=== PATIENT | female | born 1990 | race Caucasian/White ===

== ENCOUNTER 2016-11-03 09:08 | Outpatient (CLI) | payer BC, OTHER ==
[~2016-11-03] VITALS: Ht 152.4 cm; Wt 64.1 kg
[~2016-11-03 09:08] MED LIST: NITR-65 PO; ONDAN4ODT PO; PRM25T
[2016-11-03 09:18] VITALS: BP 108/64
[2016-11-03] MEDS ORDERED: bcp PO (09:22)
[2016-11-03 09:42] LABS: BASOPHILS % (AUTO) 0 % (0-10); EOSINOPHILS # (AUTO) 0.3 10^3/uL (0.0-0.3); EOSINOPHILS % (AUTO) 3 % (0-10); LYMPHOCYTES # (AUTO) 2.5 X 10^3 (1.0-4.0); LYMPHOCYTES % (AUTO) 25 % (12-44); MEAN CORPUSCULAR HEMOGLOBIN 31 PG (25-34); MEAN CORPUSCULAR HGB CONC 35 G/DL (32-36); MEAN CORPUSCULAR VOLUME 89 FL (80-99); MEAN PLATELET VOLUME 11.1 FL (7.4-10.4); MONOCYTES # (AUTO) 0.6 X 10^3 (0.0-1.0); MONOCYTES % (AUTO) 6 % (0-12); NEUTROPHILS # (AUTO) 6.5 X 10^3 (1.8-7.8); NEUTROPHILS % (AUTO) 66 % (42-75); PLATELET COUNT 247 10^3/uL (130-400); RED BLOOD COUNT 4.63 10^6/uL (4.35-5.85); RED CELL DISTRIBUTION WIDTH 12.3 % (10.0-14.5)
[2016-11-05] MEDS ORDERED: IBUP-1773 PO (13:52)
[2016-11-05] MEDS ORDERED: HYDR-3812 PO (13:52)
[2016-11-05] MEDS ORDERED: OXYC-202 PO (14:01)
== END 2016-11-03 09:30 | disposition home or self-care (01) ==
LOC: PREOP 09:08
PROVIDERS: ATTEND Obstetrics & Gynecology
DX: Z01.812 Encounter for preprocedural laboratory examination (principal); Z11.2 Encounter for screening for other bacterial diseases; N80.9 Endometriosis, unspecified; R10.32 Left lower quadrant pain; N83.201 Unspecified ovarian cyst, right side
CPT/HCPCS: 36415; 84703; 85025; 87081

== ENCOUNTER 2016-11-05 10:20 | Day surgery (SDC) | payer BC, OTHER ==
[~2016-11-05] VITALS: Ht 152.4 cm; Wt 64.1 kg
[~2016-11-05 10:20] MED LIST changes: +bcp PO
[2016-11-05 10:40] VITALS: BP 111/61
[2016-11-05] MEDS ORDERED: FAMOTIDINE 20MG/2ML IV (PEPCID) ONE (10:42)
[2016-11-05] MEDS ORDERED: proPOfol 200 MG/20 ML (DIPRIVAN) VIAL IV ONE (10:52)
[2016-11-05] MEDS ORDERED: LACTATED RINGERS 1,000 ML IV ONE ×3 (10:52→14:18)
[2016-11-05] MEDS ORDERED: LIDOCAINE PF 2% 10 ML (XYLOCAINE) AMP ONE (10:52)
[2016-11-05] MEDS ORDERED: SEVOFLURANE (ULTANE) 15 ML INHAL SOLN ONE ×2 (10:52→13:28)
[2016-11-05] MEDS ORDERED: DEXAMETHASONE PF 10 MG/ML (DECADRON) VIAL ONE (10:52)
[2016-11-05] MEDS ORDERED: fentaNYL INJECTION 100 MCG/2 ML AMP ONE (10:52)
[2016-11-05] MEDS ORDERED: ONDANSETRON 4 MG/2 ML (SDV) Z0FRAN ONE ×2 (10:52→13:31)
[2016-11-05] MEDS ORDERED: ROCURONIUM 50 MG/5 ML (ZEMURON) VIAL IV ONE (10:53)
[2016-11-05] MEDS ORDERED: MIDAZOLAM 2 MG/2 ML (VERSED) VIAL ONE (10:53)
[2016-11-05] MEDS: LACTATED RINGERS 1,000 ML IV PRN ×3 (10:54→14:28)
[2016-11-05] MEDS ORDERED: FAMOTIDINE 20MG/2ML IV (PEPCID) IV ONE (11:00)
[2016-11-05] MEDS ORDERED: BUPIVACAINE 0.25% 30 ML (SENSORCAINE) VIAL ONE (11:20)
[2016-11-05] MEDS ORDERED: BUPIVACAINE 0.25% 30 ML (SENSORCAINE) VIAL INJ ONE (12:35)
[2016-11-05] MEDS ORDERED: ONDANSETRON 4 MG/2 ML (SDV) Z0FRAN IV ONE (13:15)
[2016-11-05] MEDS ORDERED: fentaNYL INJECTION 100 MCG/2 ML AMP IV PRN (13:15)
[2016-11-05] MEDS ORDERED: NEOSTIGMINE (BLOXIVERZ ) 1 MG/1ML 10 ML VIAL ONE (13:20)
[2016-11-05] MEDS ORDERED: GLYCOPYRROLATE 0.2 MG/ML (ROBINUL) 2 ML VIAL ONE (13:20)
[2016-11-05] MEDS ORDERED: morphine INJ 10 MG/ML 1ML (SYR OR VIAL) ONE (13:31)
[2016-11-05] MEDS ORDERED: ONDANSETRON 4 MG/2 ML (SDV) Z0FRAN IV PRN (13:45)
[2016-11-05] MEDS ORDERED: morphine INJ 10 MG/ML 1ML (SYR OR VIAL) IV PRN (13:45)
[2016-11-05] MEDS ORDERED: fentaNYL INJECTION 250 MCG/5 ML AMP IV PRN (13:45)
[2016-11-05] MEDS ORDERED: PROMETHAZINE INJ 25 MG/ML (PHENERGAN) AMP IV PRN (13:45)
[2016-11-05] MEDS ORDERED: D5 LR IV SOLUTION 1,000 ML IV SCH (13:46)
--- NOTE | 2016-11-05 13:46 | Operative Report ---
Operative Report Date of Procedure/Surgery Nov 05, 2016 Post-Operative Diagnosis endometriosis, right ovarian cyst, tense appendix, chronic pelvic, enteropelvic adhesions Procedure Performed Name of Procedure: laparoscopy with right ovarian cystectomy, appendectomy, lysis of adhesions, fulgeration of endometriosis Description of Procedure Hydrotherapist Charla JiménezMS III Anesthesia Type: General Estimated blood loss (mL): minimal Specimen(s) collected appendix right ovarian cystectomy Indications pelvic pain not controlled with ocps of different types, right ovarian cyst, persistent Procedure With informed consent the patient was taken to the operating room where general anesthetic was found to be adequate. She was prepped and draped in the usual sterile fashion in the dorsal lithotomy position. The bladder was drained of clear yellow urine with a straight catheter. a speculum was placed in the vagina and the cervix was examined and appeared normal. It was grasped with a tenaculum and the uterus was gently sounded to approximately 7 cm. The uterus is retroverted. A Se[employer] Innovative manipulator was used to provide manipulation of the uterus. Attention was now turned to the abdomen. The umbilicus was injected with quarter percent Marcaine and a 5 mm skin incision. The varies needle was inserted and intra-abdominal placement was confirmed with the saline drop test and a drop in pressure. The abdomen was then insufflated to a maximum pressure of 15 mmHg. I then inserted a 5 mm trocar under direct visualization with the Optiview. The scope was inserted and a survey of the pelvis was done. Revealed a normal uterus that appeared retroverted. Also normal appearing tubes bilaterally. And normal-appearing left ovary. The right ovary had a 3-4 cm cyst with an area of hemorrhage on it but it appeared to be more vascular and not an area of rupture. The appendix was stuck to the right pelvic sidewall, iliopsoas muscle. And appeared very tense. It was not ruptured. There was no evidence of endometriosis on the appendix. There was evidence of endometriosis in the posterior cul-de-sac especially along the uterosacral ligaments. These were small but multiple. There was also some cystic endometriosis along the anterior uterus At this point, 2 additional trocars were inserted in the left lower quadrant lateral to the rectus muscles and avoiding the inferior epigastric vessels. These were both 5 millimeter trocars. I fulgurated the endometriosis in the posterior cul-de-sac because it was scarred and I could not elevated in order to excise. I used the Harmonic scalpel to do so. I then resected the right ovarian cyst from the right ovary. Upon opening the cyst was cystic fluid was very clear. But the interior portion of the abnormal area on the external portion of the cyst appeared vascular. I excised this entire area and sent this for pathology. There were some adhesions of the left colon to the left pelvic sidewall and these were taken down with the harmonic scalpel. At this point I then extended the lower of the left lower quadrant port sites and inserted a 1012 mm port. I then was able to dissect the appendix off the iliopsoas muscle with the harmonic scalpel and dissected up to the ileocecal junction. At this point I inserted an Endo MARZENA stapler 0.5 mm clips. And then clamped across the base of the appendix and excise this. Good hemostasis. There is no leakage of any bowel tissue. An Endo Catch was inserted and the appendix and the cyst wall removed and sent for pathology. at this point the pelvis was irrigated. There was no bleeding. I removed the gas from the abdomen. I then removed the ports from the abdomen. I then repaired the left lower quadrant fascial defect with 0 Vicryl in a figure-of- eight fashion. I then closed the skin with 4-0 Monocryl. And then placed Surgi -Seal sealing over the trocar incision sites. The cystocele and bandage was were placed. The patient was awakened and taken to the recovery room in a stable condition. Sponge lap needle and instrument counts were correct 2. Allergies and Home Medications Allergies Coded Allergies: Codeine (Unverified Allergy, Mild, 03/05/09) Home Medications 1 TAB PO DAILY (Reported) OMAYRA GARCIA DO Nov 05, 2016 13:46
[2016-11-05] MEDS ORDERED: KETOROLAC 30 MG/ML VIAL ONE (13:47)
--- NOTE | 2016-11-05 13:50 | Discharge Inst-Women's Service ---
Discharge Inst-Women's Serv Depart Medication/Instructions New, Converted or Re-Newed RX: RX on Chart Instructions restart OCPs as directed Final Diagnosis endometriosis right ovarian cyst procedure - laparoscopy with right ovarian cystectomy, appendectomy, fulgeration of endometriosis Consults/Follow Up Additional Follow Up: Yes (1-2 weeks with Abdi) Activity Activity: Activity as Tolerated Driving Instructions: No Driving for 24 Hours NO SMOKING: NO SMOKING Nothing Inside Vagina: No Douching, No [place], No Tampons Diet Discharge Diet: No Restrictions Symptoms to Report to : Bleeding Excessive, Pain Increased, Fever Over 101 Degrees F, Vaginal Bleeding Increase, Vaginal Discharge Foul For Any Problems or Questions: Contact Your Physician Skin/Wound Care Infection Signs and Symptoms: Increased Redness, Foul Odor of Wound, Increased Drainage, Skin Itchy or Has a Rash, Increased Swelling, Temperature Above 101 F Operative Area Clean and Dry: Keep Incision Clean/Dry, You May Remove Bandage Stitches/[place]/Dermabond: Dermabond (Surgi-Seal) Bathing Instructions: OMAYRA Araya DO Nov 05, 2016 13:50
[2016-11-05] MEDS ORDERED: IBUP-1773 PO (13:52)
[2016-11-05] MEDS ORDERED: HYDR-3812 PO (13:52)
[2016-11-05] MEDS ORDERED: ONDANSETRON 4 MG/2 ML (SDV) Z0FRAN IVP PRN (14:00)
[2016-11-05] MEDS ORDERED: HYDROcodone/APAP 5 MG/325 MG (LORTAB) TAB PO PRN (14:00)
[2016-11-05] MEDS ORDERED: KETOROLAC 30 MG/ML VIAL IVP ONE (14:00)
[2016-11-05] MEDS ORDERED: OXYC-202 PO (14:01)
[2016-11-05] MEDS: morphine INJ 10 MG/ML 1ML (SYR OR VIAL) IV PRN ×2 (14:07→14:12)
[2016-11-05 14:35] VITALS: BP 99/51
[2016-11-05 15:05] VITALS: BP_SYST 93; BP_SYST 99; BP_DIAS 51
[2016-11-05 15:35] VITALS: BP 98/56
[2016-11-05 16:10] VITALS: BP 98/56
[2016-11-05] MEDS ORDERED: IBUPROFEN 800 MG (MOTRIN) TAB PO SCH (18:00)
== END 2016-11-05 16:10 | disposition home or self-care (01) ==
LOC: SDC 10:20
PROVIDERS: ATTEND Obstetrics & Gynecology
DX: N80.0 Endometriosis of uterus (principal); N80.3 Endometriosis of pelvic peritoneum; N83.201 Unspecified ovarian cyst, right side; N73.6 Female pelvic peritoneal adhesions (postinfective); K38.9 Disease of appendix, unspecified
CPT/HCPCS: 94664

== ENCOUNTER 2019-01-14 19:55 | Emergency (ER) | payer MEDICAID, OTHER ==
[~2019-01-14] VITALS: Ht 152.4 cm; Wt 61.3 kg
[~2019-01-14 19:55] MED LIST changes: +ACHD5005 PO; +IBUP-1773 PO; +LAMO25TA75 PO; +NORG1TAB14 PO; +OXYC1TAB12 PO
[2019-01-14] MEDS ORDERED: PROMETHAZINE INJ 25 MG/ML (PHENERGAN) AMP ONE (20:36)
[2019-01-14] MEDS ORDERED: LACTATED RINGERS 1,000 ML IV ONE (20:36)
[2019-01-14] MEDS ORDERED: LACTATED RINGERS 1,000 ML IV STA (20:37)
[2019-01-14 20:44] LABS: BILIRUBIN,URINE NEGATIVE (NEGATIVE); CLARITY,URINE SLIGHTLY CLOUDY; COLOR,URINE YELLOW; GLUCOSE, URINE (UA) NEGATIVE (NEGATIVE); KETONES,URINE NEGATIVE (NEGATIVE); LEUKOCYTE ESTERASE ,URINE 3+ (NEGATIVE); NITRITE,URINE NEGATIVE (NEGATIVE); PH,URINE 7 (5-9); PROTEIN,URINE NEGATIVE (NEGATIVE); UROBILINOGEN,URINE 1 MG/DL (NORMAL)
[2019-01-14] MEDS ORDERED: PROMETHAZINE INJ 25 MG/ML (PHENERGAN) AMP IVP ONE (20:45)
--- NOTE | 2019-01-14 20:45 | ED GI ---
General Stated Complaint: VOMITTING, 6 WEEKS PREG Source of Information: Patient, Family Exam Limitations: No Limitations History of Present Illness Date Seen by Provider: Jan 14, 2019 Time Seen by Provider: 20:33 Initial Comments The patient presents with sister by private conveyance with chief complaint that all day today she's had nausea vomiting and some vague diffuse abdominal cramping. She has a last menstrual period of November 14. Putting her at 8 weeks and 5 days. She also had 3 days of spotting in December so she is not sure exactly when her period is. She has plans to follow-up later in the week with Dr. Patton. She is a . Her first she did not have any hypertension , hyperglycemia or preeclampsia but she did have a lot of hyperemesis and had to come to the ER for IV fluids several times. She had some Zofran at home and she took that but it did not help after 2 doses. Her nausea started about 7:30. She's had no fevers or chills. No diarrhea constipation or significant abdominal pain. She does have a history of endometriosis and is status post [address] Patton doing a surgery for this as well as taking her appendix. She thought it was recurring last week and is why she went to the clinic and they discovered she was . She does smoke about a pack per day but since she found out she down to about 1 or 2 cigarettes per day. She still smokes marijuana occasionally before the she was smoking nightly. She does not drink alcohol. She does take vitamins but they are hard on her stomach. No other significant medical history. Allergies and Home Medications Allergies Coded Allergies: Codeine (Unverified Allergy, Mild, 03/05/09) Home Medications Doxylamine/Pyridoxine HCl 1 Each Tablet.dr, 1 EACH PO Q6H PRN for NAUSEA/ VOMITING-1ST LINE Prescribed by: PUSHPA SALDANA on 01/14/192054 Pnv with Ca,No.74/Iron/FA 1 Each Tablet, 1 EACH PO DAILY Prescribed by: PUSHPA SALDANA on 01/14/192054 Promethazine HCl 25 Mg Tablet, 25 MG PO Q6H PRN for NAUSEA/VOMITING Prescribed by: PUSHPA SALDANA on 01/14/192054 Patient Home Medication List Home Medication List Reviewed: Yes Review of Systems Review of Systems Constitutional: No chills, No diaphoresis, No fever, No malaise EENTM: No Blurred Vision, No Double Vision Respiratory: Denies Cough, Denies Shortness of Air Cardiovascular: Denies Chest Pain, Denies Edema Gastrointestinal: Denies Abdomen Distended, Denies Abdominal Pain, Denies Blood Streaked Stools, Denies Constipated, Denies Diarrhea; Nausea, Poor Appetite, Poor Fluid Intake, Vomiting Genitourinary: Denies Burning, Denies Discharge Musculoskeletal: No back pain, No joint pain Skin: No pruritus, No rash Past Lryzwet-Bnjwfo-Qdqiru Hx Patient Social History Alcohol Use: Denies Use Recreational Drug Use: Yes Drug of Choice: Marijuana Smoking Status: Current Everyday Smoker Type Used: Cigarettes (2cig/day) 2nd Hand Smoke Exposure: Yes Recent Foreign Travel: No Contact w/Someone Who Travel: No Recent Hopitalizations: No Seasonal Allergies Seasonal Allergies: No Past Medical History Surgeries: Yes (ENDOMETRIAL ABLATION) Appendectomy, Section Respiratory: No Cardiac: Yes Heart Murmur Neurological: No Reproductive Disorders: Yes Female Reproductive Disorders: Endometriosis, Ovarian Cyst Gastrointestinal: Yes Irritable Bowel Musculoskeletal: No Endocrine: No Cancer: No Psychosocial: Yes Bipolar, Depression Integumentary: No Blood Disorders: No Physical Exam Vital Signs Vital Signs - First Documented 01/14/19 20:25 Temp 98.1 Pulse 82 Resp 20 B/P (MAP) 101/66 (78) Pulse Ox 98 O2 Delivery Room Air Capillary Refill : Height/Weight/BMI Height: 5'0.00" Weight: 135lbs. 4.0oz. 61.270034uc; 27.6 BMI Method:Stated General Appearance: WD/WN, no apparent distress HEENT: PERRL/EOMI, pharynx normal (Mildly dry.) Respiratory: no respiratory distress, no accessory muscle use Cardiovascular: normal peripheral pulses, regular rate, rhythm, no edema Peripheral Pulses: 2+ Radial Pulses (R), 2+ Radial Pulses (L) Gastrointestinal: non tender, soft Neurologic/Psychiatric: alert, normal mood/affect, oriented x 3 Skin: normal color, warm/dry Progress/Results/Core Measures Results/Orders Lab Results Laboratory Tests Test 01/14/19 20:26 01/14/19 20:39 Range/Units Urine Color YELLOW Urine Clarity SLIGHTLY CLOUDY Urine pH 7 5-9 Urine Specific [place] 1.010 L 1.016-1.022 Urine Protein NEGATIVE NEGATIVE Urine Glucose (UA) NEGATIVE NEGATIVE Urine Ketones NEGATIVE NEGATIVE Urine Nitrite NEGATIVE NEGATIVE Urine Bilirubin NEGATIVE NEGATIVE Urine Urobilinogen 1 NORMAL MG/DL Urine Leukocyte Esterase 3+ H NEGATIVE Urine RBC (Auto) NEGATIVE NEGATIVE Urine RBC NONE /HPF Urine WBC 0-2 /HPF Urine Squamous Epithelial Cells 5-10 /HPF Urine Crystals NONE /LPF Urine Bacteria FEW H /HPF Urine Casts NONE /LPF Urine Mucus SMALL H /LPF Urine Culture Indicated YES Urine Test POSITIVE NEGATIVE Urine Opiates Screen NEGATIVE NEGATIVE Urine Oxycodone Screen NEGATIVE NEGATIVE Urine Methadone Screen NEGATIVE NEGATIVE Urine Propoxyphene Screen NEGATIVE NEGATIVE Urine Barbiturates Screen NEGATIVE NEGATIVE Ur Tricyclic Antidepressants Screen NEGATIVE NEGATIVE Urine Phencyclidine Screen NEGATIVE NEGATIVE Urine Amphetamines Screen NEGATIVE NEGATIVE Urine Methamphetamines Screen NEGATIVE NEGATIVE Urine Benzodiazepines Screen NEGATIVE NEGATIVE Urine Cocaine Screen NEGATIVE NEGATIVE Urine Cannabinoids Screen POSITIVE H NEGATIVE White Blood Count 9.2 4.3-11.0 10^3/uL Red Blood Count 4.42 4.35-5.85 10^6/uL Hemoglobin 13.8 11.5-16.0 G/DL Hematocrit 39 35-52 % Mean Corpuscular Volume 88 80-99 FL Mean Corpuscular Hemoglobin 31 25-34 PG Mean Corpuscular Hemoglobin Concent 35 32-36 G/DL Red Cell Distribution Width 12.4 10.0-14.5 % Platelet Count 270 130-400 10^3/uL Mean Platelet Volume 10.8 H 7.4-10.4 FL Neutrophils (%) (Auto) 83 H 42-75 % Lymphocytes (%) (Auto) 12 12-44 % Monocytes (%) (Auto) 5 0-12 % Eosinophils (%) (Auto) 0 0-10 % Basophils (%) (Auto) 0 0-10 % Neutrophils # (Auto) 7.6 1.8-7.8 X 10^3 Lymphocytes # (Auto) 1.1 1.0-4.0 X 10^3 Monocytes # (Auto) 0.4 0.0-1.0 X 10^3 Eosinophils # (Auto) 0.0 0.0-0.3 10^3/uL Basophils # (Auto) 0.0 0.0-0.1 10^3/uL Sodium Level 137 135-145 MMOL/L Potassium Level 3.4 L 3.6-5.0 MMOL/L Chloride Level 108 H 98-107 MMOL/L Carbon Dioxide Level 20 L 21-32 MMOL/L Anion Gap 9 5-14 MMOL/L Blood Urea Nitrogen 5 L 7-18 MG/DL Creatinine 0.73 0.60-1.30 MG/DL Estimat Glomerular Filtration Rate > 60 BUN/Creatinine Ratio 7 Glucose Level 116 H 70-105 MG/DL Calcium Level 8.6 8.5-10.1 MG/DL Corrected Calcium 8.3 L 8.5-10.1 MG/DL Total Bilirubin 0.5 0.1-1.0 MG/DL Aspartate Amino Transf (AST/SGOT) 18 5-34 U/L Alanine Aminotransferase (ALT/SGPT) 13 0-55 U/L Alkaline Phosphatase 65 40-136 U/L Total Protein 6.1 L 6.4-8.2 GM/DL Albumin 4.4 3.2-4.5 GM/DL My Orders Orders - PUSHPA SALDANA Promethazine Injection (Phenergan Injec (01/14/19 20:36) Lactated Ringers (Lr 1000 Ml Iv Solution (01/14/19 20:36) Cbc With Automated Diff (01/14/19 20:37) Comprehensive Metabolic Panel (01/14/19 20:37) Urinalysis (01/14/19 20:37) Drug Screen Stat (Urine) (01/14/19 20:37) Hcg,Qualitative Urine (01/14/19 20:37) Promethazine Injection (Phenergan Injec (01/14/19 20:45) Lactated Ringers (Lr 1000 Ml Iv Solution (01/14/19 20:37) Urine Culture (01/14/19 20:26) Medications Given in ED Current Medications Medications Dose Ordered Sig/Blayne Route Start Time Stop Time Status Last Admin Dose Admin Promethazine HCl 25 mg ONCE ONCE IVP 01/14/19 20:45 01/14/19 20:46 DC 01/14/19 20:50 25 MG Vital Signs/I&O 01/14/19 20:25 Temp 98.1 Pulse 82 Resp 20 B/P (MAP) 101/66 (78) Pulse Ox 98 O2 Delivery Room Air Progress Progress Note #1: Time: 20:47 Progress Note We'll give her some Phenergan and a liter of fluids while we check some basic labs and urine. We'll recommend vitamin B6 and Tylenol. We've encouraged her to discontinue the use of tobacco and marijuana. We'll also provide her with a prescription for some Phenergan and low iron and vitamins. Progress Note #2: Time: 21:08 Progress Note Urine looks like contamination. We'll culture. Departure Impression Primary Impression: Nausea and vomiting in prior to 22 weeks gestation Disposition: 01 HOME, SELF-CARE Condition: Improved Departure-Patient Inst. Decision time for Depature: 21:15 Referrals: NO,LOCAL PHYSICIAN (PCP/Family) Primary Care Physician Patient Instructions: Nausea and Vomiting of (DC) Add. Discharge Instructions: Drink plenty of fluids. Avoid caffeine. Discontinue smoking. Follow-up with Dr. Patton at her scheduled appointment. If you have nausea or vomiting you first line should be to get some rest and try one tablet of the doxylamine/pyridoxine every 6 hours. If this is not helping you can also try Phenergan. If you're not having nausea take the vitamin with food one tablet daily. Scripts Pnv with Ca,No.74/Iron/FA ( Low Iron Tablet) 1 Each Tablet 1 EACH PO DAILY for 30 Days, #30 TAB 0 Refills Prov: PUSHPA SALDANA 01/14/19 Promethazine HCl (Promethazine Tablet) 25 Mg Tablet 25 MG PO Q6H PRN for NAUSEA/VOMITING, #14 TAB 0 Refills Prov: PUSHPA SALDANA 01/14/19 Doxylamine/Pyridoxine HCl (Leticia Sharif 10-10 mg Tablet) 1 Each Tablet. 1 EACH PO Q6H PRN for NAUSEA/VOMITING-1ST LINE, #60 TAB 0 Refills Prov: PUSHPA SALDANA 01/14/19 PUSHPA SALDANA Jan 14, 2019 20:45
[2019-01-14 20:48] LABS: BACTERIA,URINE FEW /HPF; HCG,QUALITATIVE URINE POSITIVE (NEGATIVE); WBC,URINE 0-2 /HPF
[2019-01-14 20:51] LABS: BASOPHILS % (AUTO) 0 % (0-10); EOSINOPHILS % (AUTO) 0 % (0-10); HEMATOCRIT 39 % (35-52); HEMOGLOBIN 13.8 G/DL (11.5-16.0); LYMPHOCYTES # (AUTO) 1.1 X 10^3 (1.0-4.0); LYMPHOCYTES % (AUTO) 12 % (12-44); MEAN CORPUSCULAR HEMOGLOBIN 31 PG (25-34); MEAN CORPUSCULAR HGB CONC 35 G/DL (32-36); MEAN CORPUSCULAR VOLUME 88 FL (80-99); MEAN PLATELET VOLUME 10.8 FL (7.4-10.4); MONOCYTES # (AUTO) 0.4 X 10^3 (0.0-1.0); MONOCYTES % (AUTO) 5 % (0-12); NEUTROPHILS # (AUTO) 7.6 X 10^3 (1.8-7.8); NEUTROPHILS % (AUTO) 83 % (42-75); PLATELET COUNT 270 10^3/uL (130-400); RED CELL DISTRIBUTION WIDTH 12.4 % (10.0-14.5); WHITE BLOOD COUNT 9.2 10^3/uL (4.3-11.0)
[2019-01-14 20:55] LABS: AMPHETAMINE SCREEN, URINE NEGATIVE (NEGATIVE); BARBITURATE SCREEN URINE NEGATIVE (NEGATIVE); BENZODIAZEPINES SCREEN URINE NEGATIVE (NEGATIVE); CANNABINOID SCREEN, URINE POSITIVE (NEGATIVE); COCAINE SCREEN URINE NEGATIVE (NEGATIVE); METHADONE STAT NEGATIVE (NEGATIVE); METHAMPHETAMINE SCREEN URINE S NEGATIVE (NEGATIVE); OPIATE SCREEN URINE NEGATIVE (NEGATIVE); OXYCODONE STAT NEGATIVE (NEGATIVE); PROPOXYPHENE STAT NEGATIVE (NEGATIVE); TRICYCLIC ANTIDEPRESSANTS SCRE NEGATIVE (NEGATIVE)
[2019-01-14] MEDS ORDERED: PNV1TABL47 PO (20:55)
[2019-01-14] MEDS ORDERED: DOXY1TAB3 PO (20:55)
[2019-01-14] MEDS ORDERED: PROM25TA14 PO (20:55)
[2019-01-14 21:01] LABS: ALANINE AMINOTRANSFERASE 13 U/L (0-55); ALBUMIN 4.4 GM/DL (3.2-4.5); ALKALINE PHOSPHATASE 65 U/L (40-136); BILIRUBIN,TOTAL 0.5 MG/DL (0.1-1.0); BUN/CREATININE RATIO 7; CALCIUM 8.6 MG/DL (8.5-10.1); CARBON DIOXIDE 20 MMOL/L (21-32); CHLORIDE 108 MMOL/L (98-107); CREATININE SERUM 0.73 MG/DL (0.60-1.30); GFR ESTIMATED > 60; GLUCOSE 116 MG/DL (70-105); POTASSIUM 3.4 MMOL/L (3.6-5.0); SODIUM 137 MMOL/L (135-145); TOTAL PROTEIN 6.1 GM/DL (6.4-8.2)
[2019-01-14 21:49] VITALS: BP 98/61
== END 2019-01-14 21:49 | disposition home or self-care (01) ==
LOC: EDUNIT# 19:55 → ER 19:57
DX: O21.9 Vomiting of pregnancy, unspecified (principal); O99.331 Smoking (tobacco) complicating pregnancy, first trimester; F17.210 Nicotine dependence, cigarettes, uncomplicated; O99.321 Drug use complicating pregnancy, first trimester; F12.10 Cannabis abuse, uncomplicated; O99.611 Diseases of the digestive system complicating pregnancy, first trimester; K58.9 Irritable bowel syndrome, unspecified; O99.341 Other mental disorders complicating pregnancy, first trimester; F31.9 Bipolar disorder, unspecified; Z88.5 Allergy status to narcotic agent; Z3A.08 8 weeks gestation of pregnancy
CPT/HCPCS: 36415; 80053; 80306; 81000; 84703; 85025; 87088

== ENCOUNTER 2019-03-14 07:58 | Emergency (ER) | payer MEDICAID ==
[~2019-03-14] VITALS: Ht 152.4 cm; Wt 66.2 kg
[~2019-03-14 07:58] MED LIST changes: +DOXY1TAB3 PO; +PNV1TABL47 PO; +PROM25TA14 PO
[2019-03-14 08:27] LABS: BASOPHILS % (AUTO) 0 % (0-10); EOSINOPHILS # (AUTO) 0.1 10^3/uL (0.0-0.3); EOSINOPHILS % (AUTO) 1 % (0-10); HEMATOCRIT 37 % (35-52); HEMOGLOBIN 12.7 G/DL (11.5-16.0); LYMPHOCYTES # (AUTO) 1.6 X 10^3 (1.0-4.0); LYMPHOCYTES % (AUTO) 16 % (12-44); MEAN CORPUSCULAR HEMOGLOBIN 31 PG (25-34); MEAN CORPUSCULAR HGB CONC 35 G/DL (32-36); MEAN CORPUSCULAR VOLUME 88 FL (80-99); MEAN PLATELET VOLUME 10.6 FL (7.4-10.4); MONOCYTES # (AUTO) 0.5 X 10^3 (0.0-1.0); MONOCYTES % (AUTO) 5 % (0-12); NEUTROPHILS # (AUTO) 7.8 X 10^3 (1.8-7.8); NEUTROPHILS % (AUTO) 79 % (42-75); PLATELET COUNT 269 10^3/uL (130-400); RED CELL DISTRIBUTION WIDTH 12.5 % (10.0-14.5); WHITE BLOOD COUNT 9.9 10^3/uL (4.3-11.0)
[2019-03-14 08:47] LABS: ALANINE AMINOTRANSFERASE 14 U/L (0-55); ALBUMIN 3.7 GM/DL (3.2-4.5); ALKALINE PHOSPHATASE 82 U/L (40-136); BILIRUBIN,TOTAL 0.2 MG/DL (0.1-1.0); BUN/CREATININE RATIO 6; CALCIUM 8.9 MG/DL (8.5-10.1); CARBON DIOXIDE 17 MMOL/L (21-32); CHLORIDE 110 MMOL/L (98-107); CREATININE SERUM 0.62 MG/DL (0.60-1.30); GFR ESTIMATED > 60; GLUCOSE 90 MG/DL (70-105); POTASSIUM 3.7 MMOL/L (3.6-5.0); SODIUM 139 MMOL/L (135-145)
--- NOTE | 2019-03-14 09:07 | ED General ---
General Chief Complaint: Abdominal/GI Problems Stated Complaint: VOMITING BLOOD. 14 WKS Nursing Triage Note: ARRIVED VIA AMB TO ROOM 10. STATES SHE VOMITED BLOOD TODAY. STATES SHE IS 14 WEEKS GESTATION AND THIS HAPPENED ABOUT 1 MONTH AGO AND WAS TOLD IT WAS NOTHING BY HER DR. Nursing Sepsis Screen: No Definite Risk Source of Information: Patient Exam Limitations: No Limitations History of Present Illness Date Seen by Provider: March 14, 2019 Time Seen by Provider: 08:40 Initial Comments Here with report of vomiting blood 1 this morning. States that she woke up nauseated and that she had to vomit. She vomited once and noted some blood in the beginning and then mucus and saliva. She is approximately 14 weeks . Had an episode about a month ago similar with 1 vomiting. She has had nothing in the interim. She is to see Dr. Warren on next 03/20/19. Timing/Duration: 1/2 Hour Severity: Mild Associated Systoms: No Chest Pain, No Cough, No Fever/Chills; Nausea/Vomiting; No Shortness of Air, No Weakness Allergies and Home Medications Allergies Coded Allergies: Codeine (Unverified Allergy, Mild, 03/05/09) Home Medications Doxylamine/Pyridoxine HCl 1 Each Tablet.dr, 1 EACH PO Q6H PRN for NAUSEA/ VOMITING-1ST LINE Prescribed by: PUSHPA SALDANA on 01/14/192054 Pnv with Ca,No.74/Iron/FA 1 Each Tablet, 1 EACH PO DAILY Prescribed by: PUSHPA SALDANA on 01/14/192054 Promethazine HCl 25 Mg Tablet, 25 MG PO Q6H PRN for NAUSEA/VOMITING Prescribed by: PUSHPA SALDANA on 01/14/192054 Patient Home Medication List Home Medication List Reviewed: Yes Review of Systems Review of Systems Constitutional: see HPI; No chills, No fever EENTM: other (upper respiratory infection a couple weeks ago but doing okay now ) Respiratory: No cough, No short of breath Cardiovascular: No chest pain, No palpitations Gastrointestinal: No abdominal pain; nausea, vomiting Genitourinary: no symptoms reported Expected Date of Delivery: Sep 13, 2019 Musculoskeletal: no symptoms reported Skin: no symptoms reported All Other Systems Reviewed Negative Unless Noted: Yes Past Pzbkszk-Vtgrsw-Afjwbf Hx Past Med/Social Hx: Reviewed Nursing Past Med/Soc Hx Patient Social History Alcohol Use: Denies Use Recreational Drug Use: Yes Drug of Choice: POT Smoking Status: Current Everyday Smoker Type Used: Cigarettes 2nd Hand Smoke Exposure: Yes Recent Foreign Travel: No Contact w/Someone Who Travel: No Recent Infectious Disease Expo: No Recent Hopitalizations: No Seasonal Allergies Seasonal Allergies: No Past Medical History Surgeries: Yes (ENDOMETRIAL ABLATION) Appendectomy, Section Respiratory: No Cardiac: Yes Heart Murmur Neurological: No : Yes Expected Date of Delivery: Sep 13, 2019 Reproductive Disorders: Yes Female Reproductive Disorders: Endometriosis, Ovarian Cyst Genitourinary: No Gastrointestinal: Yes Irritable Bowel Musculoskeletal: No Endocrine: No HEENT: No Cancer: No Psychosocial: Yes Bipolar, Depression Integumentary: No Blood Disorders: No Family Medical History Reviewed Nursing Family Hx Physical Exam Vital Signs Vital Signs - First Documented 03/14/19 08:05 Temp 98.0 Pulse 76 Resp 16 B/P (MAP) 109/62 (78) Pulse Ox 98 O2 Delivery Room Air Capillary Refill : Less Than 3 Seconds Height, Weight, BMI Height: 5'0.00" Weight: 146lbs. 4.0oz. 66.701518ob; 27.6 BMI Method:Stated General Appearance: No Apparent Distress, WD/WN HEENT: PERRL/EOMI, Pharynx Normal, Other (question old blood within the right naris but no active bleeding.) Neck: Non Tender, Supple Respiratory: Lungs Clear, Normal Breath Sounds Cardiovascular: Regular Rate, Rhythm, No Murmur Gastrointestinal: Non Tender, Soft Back: Normal Inspection, No CVA Tenderness, No Vertebral Tenderness Extremity: Normal Range of Motion, Non Tender Neurologic/Psychiatric: Alert, Oriented x3 Skin: Normal Color, Warm/Dry Progress/Results/Core Measures Suspected Sepsis Recent Fever Within 48 Hours: No Infection Criteria Present: None New/Unexplained Altered Menta: No Sepsis Screen: No Definite Risk SIRS Temperature:98.0 Pulse: 76 Respiratory Rate: 16 Laboratory Tests 03/14/19 08:18: White Blood Count 9.9 Blood Pressure 109 /62 Mean: 78 Laboratory Tests 03/14/19 08:18: Creatinine 0.62, Platelet Count 269, Total Bilirubin 0.2 Results/Orders Lab Results Laboratory Tests Test 03/14/19 08:18 Range/Units White Blood Count 9.9 4.3-11.0 10^3/uL Red Blood Count 4.13 L 4.35-5.85 10^6/uL Hemoglobin 12.7 11.5-16.0 G/DL Hematocrit 37 35-52 % Mean Corpuscular Volume 88 80-99 FL Mean Corpuscular Hemoglobin 31 25-34 PG Mean Corpuscular Hemoglobin Concent 35 32-36 G/DL Red Cell Distribution Width 12.5 10.0-14.5 % Platelet Count 269 130-400 10^3/uL Mean Platelet Volume 10.6 H 7.4-10.4 FL Neutrophils (%) (Auto) 79 H 42-75 % Lymphocytes (%) (Auto) 16 12-44 % Monocytes (%) (Auto) 5 0-12 % Eosinophils (%) (Auto) 1 0-10 % Basophils (%) (Auto) 0 0-10 % Neutrophils # (Auto) 7.8 1.8-7.8 X 10^3 Lymphocytes # (Auto) 1.6 1.0-4.0 X 10^3 Monocytes # (Auto) 0.5 0.0-1.0 X 10^3 Eosinophils # (Auto) 0.1 0.0-0.3 10^3/uL Basophils # (Auto) 0.0 0.0-0.1 10^3/uL Sodium Level 139 135-145 MMOL/L Potassium Level 3.7 3.6-5.0 MMOL/L Chloride Level 110 H 98-107 MMOL/L Carbon Dioxide Level 17 L 21-32 MMOL/L Anion Gap 12 5-14 MMOL/L Blood Urea Nitrogen 4 L 7-18 MG/DL Creatinine 0.62 0.60-1.30 MG/DL Estimat Glomerular Filtration Rate > 60 BUN/Creatinine Ratio 6 Glucose Level 90 70-105 MG/DL Calcium Level 8.9 8.5-10.1 MG/DL Corrected Calcium 9.1 8.5-10.1 MG/DL Total Bilirubin 0.2 0.1-1.0 MG/DL Aspartate Amino Transf (AST/SGOT) 18 5-34 U/L Alanine Aminotransferase (ALT/SGPT) 14 0-55 U/L Alkaline Phosphatase 82 40-136 U/L Total Protein 6.0 L 6.4-8.2 GM/DL Albumin 3.7 3.2-4.5 GM/DL My Orders Orders - KRIS JANSEN MD Ed Iv/Invasive Line Start (03/14/19 08:06) Cbc With Automated Diff (03/14/19 08:06) Comprehensive Metabolic Panel (03/14/19 08:06) Vital Signs/I&O 03/14/19 08:05 Temp 98.0 Pulse 76 Resp 16 B/P (MAP) 109/62 (78) Pulse Ox 98 O2 Delivery Room Air Capillary Refill : Less Than 3 Seconds Blood Pressure Mean: 78 Progress Note : Progress Note Seen and evaluated. IV and labs ordered. 0909: Hemoglobin still in normal range. No active vomiting during ER stay. Doppler evaluation shows heart tones of 143. 0913: Discharged home with return precautions. Patient verbalize understanding instructions and agreement with plan. I will send a copy of the chart to Dr. Warren. Departure Impression Primary Impression: Vomiting blood Qualified Codes: K92.0 - Hematemesis Disposition: HOME, SELF-CARE Condition: Improved Departure-Patient Inst. Decision time for Depature: 09:15 Referrals: DEMETRIO WARREN DO (PCP) Primary Care Physician Patient Instructions: Nausea and Vomiting of (DC) Add. Discharge Instructions: All discharge instructions reviewed with patient and/or family. Voiced understanding. Use saline nasal spray a few times a day and before bedtime to keep your nose moist. Keep appointment with Dr. Warren as scheduled next week. Return for worse pain, vomiting blood, weakness, breathing problems, abdominal pain or other concerns as needed. Copy Copies To 1: DEMETRIO WARREN TIMOTHY D MD March 14, 2019 09:07
--- NOTE | 2019-03-14 09:11 | NUR ---
IN ROOM WITH PT AT THIS TIME
[2019-03-14 09:31] VITALS: BP 109/62
== END 2019-03-14 09:30 | disposition home or self-care (01) ==
LOC: EDUNIT# 07:58 → ER 07:59
DX: O99.612 Diseases of the digestive system complicating pregnancy, second trimester (principal); K92.0 Hematemesis; K58.9 Irritable bowel syndrome, unspecified; O99.322 Drug use complicating pregnancy, second trimester; F12.10 Cannabis abuse, uncomplicated; O99.342 Other mental disorders complicating pregnancy, second trimester; F31.9 Bipolar disorder, unspecified; O99.332 Smoking (tobacco) complicating pregnancy, second trimester; F17.210 Nicotine dependence, cigarettes, uncomplicated; Z88.5 Allergy status to narcotic agent; Z3A.14 14 weeks gestation of pregnancy; Z90.49 Acquired absence of other specified parts of digestive tract; Z98.890 Other specified postprocedural states; Z87.448 Personal history of other diseases of urinary system
CPT/HCPCS: 36415; 80053; 85025

== ENCOUNTER → 2019-04-27 | Outpatient (CLI) | payer MEDICAID ==
--- NOTE | 2019-04-27 13:22 | Diagnostic Imaging Report ---
INDICATION: Size and dates. TECHNIQUE: Multiple real-time grayscale images were obtained over the gravid uterus. COMPARISON: None. FINDINGS: There is a single living intrauterine in transverse presentation with the head to the maternal left. The biometry correlates with gestational age of 20 weeks 2 days. Heart rate is 140 beats per minute and regular. Placenta is anterior. There is no previa. There is a normal volume of amniotic fluid. The anatomical survey is unremarkable apart from limited views of the thoracic and lumbar spine. There was a three-vessel cord and four-chamber heart. Maternal adnexa is unremarkable. IMPRESSION: 1. Single living intrauterine with sonographically estimated gestational age of 20 weeks 2 days and estimated date of confinement of September 12, 2019. 2. Limited visualization of the thoracic and lumbar spine due to lie. Biometrical measurements are as follows: Biparietal 4.64 cm, age 20 weeks 1 days. Head circumference 17.65 cm, age 20 weeks 1 days. Abdominal circumference 14.96 cm, age 20 weeks 2 days. Femur length 3.42 cm, age 20 weeks 6 days. Sonographic estimate age: 20 weeks 3 days. Sonographic estimated date of delivery: 09/11/19. Estimated Weight: 352 gm (+/- 51 gm). LMP percentile: 53%. heart rate: 140 beats per minute. number: 1 of 1. Dictated by: Dictated on workstation # [id number]
== END ==
LOC: RAD 09:37
PROVIDERS: ATTEND Obstetrics & Gynecology
DX: Z34.92 Encounter for supervision of normal pregnancy, unspecified, second trimester (principal); Z3A.20 20 weeks gestation of pregnancy
CPT/HCPCS: 76805

== ENCOUNTER 2019-05-22 18:10 | Outpatient (CLI) | payer MEDICAID ==
[~2019-05-22] VITALS: Ht 152.4 cm; Wt 72.7 kg
--- NOTE | 2019-05-22 18:10 | NUR ---
Arrived to unit via ambulation accompanied by s.o. with c/o Nausea vomiting since this am. Wt obtained. To room 315 gowned and to bed. Oriented to room, call light and surroundings. plan of care reviewed with pt.
[2019-05-22 18:47] VITALS: BP 106/59
--- NOTE | 2019-05-22 19:03 | NUR ---
Dr Patton called and notified of pt arrival, gestation, c/o, assessment, urine dipstick. New orders received. plan of care reviewed with pt and s.o.
[2019-05-22] MEDS ORDERED: NS IV 1000 ML 1,000 ML IV ONE (19:15)
[2019-05-22] MEDS ORDERED: PROMETHAZINE INJ 25 MG/ML (PHENERGAN) AMP IVP ONE (19:15)
[2019-05-22] MEDS ORDERED: PEDI1TAB35 PO (19:16)
[2019-05-22 19:49] LABS: BASOPHILS % (AUTO) 0 % (0-10); EOSINOPHILS # (AUTO) 0.1 10^3/uL (0.0-0.3); EOSINOPHILS % (AUTO) 0 % (0-10); HEMATOCRIT 34 % (35-52); HEMOGLOBIN 11.2 G/DL (11.5-16.0); LYMPHOCYTES # (AUTO) 1.8 X 10^3 (1.0-4.0); LYMPHOCYTES % (AUTO) 12 % (12-44); MEAN CORPUSCULAR HEMOGLOBIN 30 PG (25-34); MEAN CORPUSCULAR HGB CONC 33 G/DL (32-36); MEAN CORPUSCULAR VOLUME 91 FL (80-99); MEAN PLATELET VOLUME 11.3 FL (7.4-10.4); MONOCYTES # (AUTO) 0.8 X 10^3 (0.0-1.0); MONOCYTES % (AUTO) 6 % (0-12); NEUTROPHILS # (AUTO) 12.3 X 10^3 (1.8-7.8); NEUTROPHILS % (AUTO) 82 % (42-75); PLATELET COUNT 254 10^3/uL (130-400); WHITE BLOOD COUNT 14.9 10^3/uL (4.3-11.0)
[2019-05-22 20:00] VITALS: BP 113/60
[2019-05-22 20:08] LABS: ALANINE AMINOTRANSFERASE 10 U/L (0-55); ALBUMIN 3.4 GM/DL (3.2-4.5); BILIRUBIN,TOTAL 0.3 MG/DL (0.1-1.0); BUN/CREATININE RATIO 5; CALCIUM 8.5 MG/DL (8.5-10.1); CARBON DIOXIDE 19 MMOL/L (21-32); CREATININE SERUM 0.62 MG/DL (0.60-1.30); GFR ESTIMATED > 60; GLUCOSE 86 MG/DL (70-105); TOTAL PROTEIN 5.7 GM/DL (6.4-8.2)
[2019-05-22 20:35] LABS: ALKALINE PHOSPHATASE 116 U/L (40-136); CHLORIDE 108 MMOL/L (98-107); POTASSIUM 3.2 MMOL/L (3.6-5.0); SODIUM 139 MMOL/L (135-145)
[2019-05-22 20:46] LABS: BAND NEUTROPHILS 1 %; HYPERSEGMENTED NEUT SLIGHT; LYMPHOCYTES % (MANUAL) 21 %; MONOCYTES % (MANUAL) 3 %; NEUTROPHILS % (MANUAL) 75 %
--- NOTE | 2019-05-22 20:46 | NUR ---
Dr. Patton notified of lab results, fluid bolus in, and patient stating she no longer feels nauseated. Orders received to call in Phenergan to pt. preferred and discharge home.
[2019-05-22 20:47] LABS: RBC MORPH NORMAL; TOXIC GRANULATION/VACUOLAZATIO 1+
[2019-05-22] MEDS ORDERED: PROM25TA14 PO (20:53)
--- NOTE | 2019-05-22 21:10 | NUR ---
Written discharge instructions reviewed with patient. Discharge instructions signed and copy given. Patient dismissed home, accompanied by . Condition stable. No signs or symptoms of distress.
== END 2019-05-22 21:10 | disposition home or self-care (01) ==
LOC: WSo 18:10 → LDRP 18:10 → WSo 21:10
PROVIDERS: ATTEND Obstetrics & Gynecology
DX: O21.2 Late vomiting of pregnancy (principal); Z3A.23 23 weeks gestation of pregnancy
CPT/HCPCS: 36415; 80053; 85007; 85027

== ENCOUNTER 2019-07-10 09:28 | Outpatient (CLI) | payer MEDICAID ==
[~2019-07-10] VITALS: Ht 152.4 cm; Wt 72.7 kg
[2019-07-10 09:15] VITALS: BP 114/56
--- NOTE | 2019-07-10 09:25 | NUR ---
ASHKAN PINA presented to unit via ambulation from home, accompanied by self, with c/o VOMITTING. ASHKAN PINA weighed, gowned, voided, and to bed. EFHM and TOCO applied, VS taken. ASHKAN PINA oriented to bed controls, call light, TV, heat, and A/C controls.
[~2019-07-10 09:28] MED LIST changes: +PEDI1TAB35 PO
[2019-07-10] MEDS ORDERED: NS IV 1000 ML 1,000 ML IV SCH ×2 (09:34→19:00)
[2019-07-10] MEDS ORDERED: LACTATED RINGERS 1,000 ML IV ONE (09:35)
--- NOTE | 2019-07-10 09:40 | NUR ---
dr hodgson notified of patient arrival new orders received.
[2019-07-10] MEDS ORDERED: PROMETHAZINE INJ 25 MG/ML (PHENERGAN) AMP IVP PRN (09:45)
[2019-07-10 10:25] LABS: BASOPHILS % (AUTO) 0 % (0-10); EOSINOPHILS # (AUTO) 0.1 10^3/uL (0.0-0.3); EOSINOPHILS % (AUTO) 1 % (0-10); HEMATOCRIT 33 % (35-52); HEMOGLOBIN 10.7 G/DL (11.5-16.0); LYMPHOCYTES # (AUTO) 1.6 X 10^3 (1.0-4.0); LYMPHOCYTES % (AUTO) 13 % (12-44); MEAN CORPUSCULAR HEMOGLOBIN 29 PG (25-34); MEAN CORPUSCULAR HGB CONC 33 G/DL (32-36); MEAN CORPUSCULAR VOLUME 88 FL (80-99); MEAN PLATELET VOLUME 11.1 FL (7.4-10.4); MONOCYTES # (AUTO) 0.7 X 10^3 (0.0-1.0); MONOCYTES % (AUTO) 6 % (0-12); NEUTROPHILS # (AUTO) 10.3 X 10^3 (1.8-7.8); NEUTROPHILS % (AUTO) 81 % (42-75); PLATELET COUNT 268 10^3/uL (130-400); RED CELL DISTRIBUTION WIDTH 12.5 % (10.0-14.5); WHITE BLOOD COUNT 12.6 10^3/uL (4.3-11.0)
--- NOTE | 2019-07-10 10:34 | NUR ---
reactive NST obtained fhr baseline 135. no decelerations occasional contractions.
[2019-07-10 10:47] LABS: ALANINE AMINOTRANSFERASE 7 U/L (0-55); ALBUMIN 3.1 GM/DL (3.2-4.5); ALKALINE PHOSPHATASE 249 U/L (40-136); BILIRUBIN,TOTAL 0.4 MG/DL (0.1-1.0); BUN/CREATININE RATIO 11; CALCIUM 8.4 MG/DL (8.5-10.1); CARBON DIOXIDE 22 MMOL/L (21-32); CHLORIDE 107 MMOL/L (98-107); CREATININE SERUM 0.57 MG/DL (0.60-1.30); GFR ESTIMATED > 60; GLUCOSE 82 MG/DL (70-105); POTASSIUM 3.3 MMOL/L (3.6-5.0); SODIUM 137 MMOL/L (135-145); TOTAL PROTEIN 5.5 GM/DL (6.4-8.2)
[2019-07-10 10:50] VITALS: BP 114/66
--- NOTE | 2019-07-10 12:20 | NUR ---
IV fluids completed. IV saline locked.
[2019-07-10 12:33] LABS: BILIRUBIN,URINE NEGATIVE (NEGATIVE); CLARITY,URINE SLIGHTLY CLOUDY; COLOR,URINE YELLOW; GLUCOSE, URINE (UA) NEGATIVE (NEGATIVE); KETONES,URINE 4+ (NEGATIVE); LEUKOCYTE ESTERASE ,URINE 1+ (NEGATIVE); NITRITE,URINE NEGATIVE (NEGATIVE); PH,URINE 9 (5-9); PROTEIN,URINE 2+ (NEGATIVE); UROBILINOGEN,URINE 1 MG/DL (NORMAL)
[2019-07-10 12:43] LABS: AMORPHOUS SEDIMENT,UR LARGE AMOR PHOSPHATE /LPF; BACTERIA,URINE NEGATIVE /HPF; WBC,URINE RARE /HPF
--- NOTE | 2019-07-10 13:30 | NUR ---
family at bedside
--- NOTE | 2019-07-10 13:40 | NUR ---
dr hodgson notified of patient UA, and lab results. new orders received.
[2019-07-10] MEDS ORDERED: POTASSIUM CHLORIDE INJ 20 MEQ in D5 LR IV SOLUTION 1,000 ML IV SCH ×4 (13:45)
--- NOTE | 2019-07-10 15:05 | NUR ---
resting in bed, denies vomiting/nausea at this time. just mild cramping. IV fluids started as ordered. reviewed UA results with patient, continuing to monitor, updated on new diet orders. denies further need. continuing to monitor
[2019-07-10 20:00] VITALS: BP 99/59
--- NOTE | 2019-07-10 20:00 | NUR ---
VSS, assessment completed, pt. denies pain or n/v, IV not running, will call Dr. Patton with update.
--- NOTE | 2019-07-10 20:03 | NUR ---
Called Dr. Patton, update given, new orders rc'd to D/C home if pt. is comfortable going home. POC reviewed w/pt, pt. verbalized understanding & voiced desire to go home.
[2019-07-10 20:20] VITALS: BP 99/59
--- NOTE | 2019-07-10 20:20 | NUR ---
D/C instructions given & explained, pt. verbalized understanding & signed, copy of D/C instructions to pt. Pt. left [facility] ambulatory escorted by SO, to home via private vehicle. *paper D/C instructions given as [place] down on [facility]
--- NOTE | 2019-07-11 09:51 | Physician Query-Final Dx ---
HUSAM POLLARD 07/11/19 0951: Clinic Account Progress/Dx Physician Query: Please give diagnosis Please remember to include weeks gestation Date of Service Jul 10, 2019 at 09:28 OMAYRA GARCIA DO 08/01/19 1047: Clinic Account Progress/Dx DIAGNOSIS: Diagnosis emesis hypokalemia 30 weeks gestation HUSAM POLLARD Jul 11, 2019 09:51 OMAYRA GARCIA DO Aug 01, 2019 10:47
== END 2019-07-10 20:20 | disposition home or self-care (01) ==
LOC: WSo 09:28 → LDRP 09:29 → WSo 20:20
PROVIDERS: ATTEND Obstetrics & Gynecology
DX: O99.283 Endocrine, nutritional and metabolic diseases complicating pregnancy, third trimester (principal); O21.2 Late vomiting of pregnancy; E87.6 Hypokalemia; Z3A.30 30 weeks gestation of pregnancy
CPT/HCPCS: 36415; 80053; 81000; 85025; 96361; 96374; 99213

== ENCOUNTER 2019-08-24 05:54 | Outpatient (CLI) | payer MEDICAID ==
[~2019-08-24] VITALS: Ht 152.4 cm; Wt 81.8 kg
== END 2019-08-24 11:00 | disposition home or self-care (01) ==
LOC: PREOP 05:54
PROVIDERS: ATTEND Obstetrics & Gynecology
DX: Z01.818 Encounter for other preprocedural examination (principal)

== ENCOUNTER 2019-08-29 06:15 | Inpatient (IN) | payer MEDICAID ==
[~2019-08-29] VITALS: Ht 152.4 cm; Wt 81.1 kg
[2019-08-29] VITALS (9 sets, daily range): BP systolic 102–120; BP diastolic 59–80
--- NOTE | 2019-08-29 06:06 | NUR ---
ASHKAN PINA presented to unit via ambulation from home, accompanied by s.o for repeat section. ASHKAN PINA weighed, gowned, voided, and to bed. EFHM and TOCO applied, VS taken. ASHKAN PINA oriented to bed controls, call light, TV, heat, and A/C controls.
[~2019-08-29 06:15] MED LIST changes: +CITRIC ACID/SOB CIT (BICITRA) 30 ML UDC ONE; +FAMOTIDINE 20MG/2ML IV (PEPCID) ONE; +LACTATED RINGERS 1,000 ML IV ONE; +METOCLOPRAMIDE INJ 10 MG/2 ML (REGLAN) ONE; +WATER (STERILE) FOR INJECTION 10 ML ONE; +ceFAZolin INJECTION 1,000 MG ONE
[2019-08-29] MEDS ORDERED: LACTATED RINGERS 1,000 ML IV PRN (06:27)
[2019-08-29] MEDS ORDERED: METOCLOPRAMIDE INJ 10 MG/2 ML (REGLAN) IV ONE (06:30)
[2019-08-29] MEDS ORDERED: CITRIC ACID/SOB CIT (BICITRA) 30 ML UDC PO ONE (06:30)
[2019-08-29] MEDS ORDERED: FAMOTIDINE 20MG/2ML IV (PEPCID) IV ONE (06:30)
[2019-08-29] MEDS ORDERED: ceFAZolin INJECTION 1,000 MG in WATER (STERILE) FOR INJECTION 10 ML IV ONE (06:30)
[2019-08-29 06:47] LABS: BASOPHILS % (AUTO) 0 % (0-10); EOSINOPHILS # (AUTO) 0.1 10^3/uL (0.0-0.3); EOSINOPHILS % (AUTO) 1 % (0-10); HEMATOCRIT 33 % (35-52); HEMOGLOBIN 10.3 G/DL (11.5-16.0); LYMPHOCYTES # (AUTO) 2.7 X 10^3 (1.0-4.0); LYMPHOCYTES % (AUTO) 22 % (12-44); MEAN CORPUSCULAR HEMOGLOBIN 25 PG (25-34); MEAN CORPUSCULAR HGB CONC 32 G/DL (32-36); MEAN CORPUSCULAR VOLUME 80 FL (80-99); MEAN PLATELET VOLUME 11.3 FL (7.4-10.4); MONOCYTES # (AUTO) 0.8 X 10^3 (0.0-1.0); MONOCYTES % (AUTO) 6 % (0-12); NEUTROPHILS # (AUTO) 8.7 X 10^3 (1.8-7.8); NEUTROPHILS % (AUTO) 71 % (42-75); PLATELET COUNT 254 10^3/uL (130-400); RED CELL DISTRIBUTION WIDTH 14.3 % (10.0-14.5); WHITE BLOOD COUNT 12.2 10^3/uL (4.3-11.0)
[2019-08-29] MEDS ORDERED: fentaNYL INJECTION 100 MCG/2 ML AMP ONE (07:10)
[2019-08-29] MEDS ORDERED: OXYTOCIN/NORMAL SALINE 1,000 ML IV ONE (07:15)
--- NOTE | 2019-08-29 07:17 | History & Physical-OB ---
OB - Chief Complaint & HPI Date/Time Date of Admission: Date of Admission: Aug 29, 2019 at 06:15 Date seen by a Provider: Aug 29, 2019 Time Seen by a Provider: 07:15 Chief Complaint/History OB-Reason for Admission/Chief: Section Hx : 2 Hx Para: 1 Expected Date of Delivery: Sep 12, 2019 Gestational Age in Weeks: 38 Gestational Age in Days: 0 Indication for : desires repeat Other reason for admission: Patient seen last week and bile salts ordered due to itching of palms and feet. liver enzymes WNL, but bile salts elevated when returned result yesterday. Due to 38 weeks, recommended to patient delivery due to increased risk of still . Admission Nurse Assessment Rev: Yes History of Labs O pos Antibody neg RI RPR NR HBsAg NR HIV NR GC equivocal- treated 1st trimester GBS neg Allergies and Home Medications Allergies Coded Allergies: codeine (Unverified Allergy, Mild, 03/05/09) Home Medications Pediatric Multivit Comb. No.49 1 Each Tab.chew, 1 EACH PO DAILY, (Reported) Patient Home Medication List Home Medication List Reviewed: Yes OB - History Hx of Present Care: Yes Ultrasounds: Normal mid trimester US Obstetrical Complications: None, Other (Cholestasis of ) Medical Complications: None Delivery History Hx Blood Disorders: No Patient Past Medical History n/a Social History/Family History Recent Infectious Disease Expo: No Alcohol Use: Denies Use Recreational Drug Use: No 2nd Hand Smoke Exposure: Yes Immunizations Date of Influenza Vaccine: Aug 22, 2019 OB - Admission Exam Physical Exam Vitals: Vital Signs 08/29/19 06:30 Temp 36.0 Pulse 80 Resp 18 B/P (MAP) 114/70 (85) Pulse Ox 98 O2 Delivery Room Air HEENT: NCAT Heart: Rhythm Normal Lungs: Clear Abdomen: Gravid Extremities: Normal Reflexes: Normal Heart Rate: 130's Accelerations: Accelerations Present Decelerations: No Decelerations Short Term Variability: Present Senior Living Variability: Average (6-25) Contractions on Admission: >10 Minutes Apart Labs Laboratory Tests Test 08/29/19 06:35 Range/Units White Blood Count 12.2 H 4.3-11.0 10^3/uL Red Blood Count 4.07 L 4.35-5.85 10^6/uL Hemoglobin 10.3 L 11.5-16.0 G/DL Hematocrit 33 L 35-52 % Mean Corpuscular Volume 80 80-99 FL Mean Corpuscular Hemoglobin 25 25-34 PG Mean Corpuscular Hemoglobin Concent 32 32-36 G/DL Red Cell Distribution Width 14.3 10.0-14.5 % Platelet Count 254 130-400 10^3/uL Mean Platelet Volume 11.3 H 7.4-10.4 FL Neutrophils (%) (Auto) 71 42-75 % Lymphocytes (%) (Auto) 22 12-44 % Monocytes (%) (Auto) 6 0-12 % Eosinophils (%) (Auto) 1 0-10 % Basophils (%) (Auto) 0 0-10 % Neutrophils # (Auto) 8.7 H 1.8-7.8 X 10^3 Lymphocytes # (Auto) 2.7 1.0-4.0 X 10^3 Monocytes # (Auto) 0.8 0.0-1.0 X 10^3 Eosinophils # (Auto) 0.1 0.0-0.3 10^3/uL Basophils # (Auto) 0.0 0.0-0.1 10^3/uL OB - Assessment/Plan/Diagnosis Assessment Assessment: section Admission Dx 29yo @ 38 weeks Previous x 1 Cholestasis of GBS neg Admission Status: Inpatient Order (span 2 midnights) Reason for Inpatient Admission: Repeat Plan Plan: Section DEMETRIO WARREN DO Aug 29, 2019 07:17 POS
--- NOTE | 2019-08-29 07:20 | NUR ---
monitors dc'd. pt ambulated to OB c/s room with OR staff @ side. no sx's of distress noted.
[2019-08-29] MEDS ORDERED: ACHD5005 PO (07:24)
[2019-08-29] MEDS ORDERED: IBUP-844 PO (07:24)
[2019-08-29] MEDS ORDERED: DOCU100C37 PO (07:24)
--- NOTE | 2019-08-29 07:25 | Discharge Inst-Women's Service ---
Discharge Inst-Women's Serv Depart Medication/Instructions New, Converted or Re-Newed RX: RX on Chart Final Diagnosis POD 2 RLTCS Problems Reviewed?: Yes Consults/Follow Up Additional Follow Up: Yes Orders/Referrals Dr. Tracy in 7-10 days and in 6 weeks Activity Activity: Activity as Tolerated Driving Instructions: No Driving for 1 Week NO SMOKING: NO SMOKING Nothing Inside Vagina: No Douching, No [place], No Tampons Diet Discharge Diet: No Restrictions Symptoms to Report to : Bleeding Excessive, Pain Increased, Fever Over 101 Degrees F, Vaginal Bleeding Increase, Questions/Concerns For Any Problems or Questions: Contact Your Physician Skin/Wound Care Infection Signs and Symptoms: Increased Redness, Foul Odor of Wound, Increased Drainage, Skin Itchy or Has a Rash, Increased Swelling, Temperature Above 101 F Operative Area Clean and Dry: Keep Incision Clean/Dry Stitches/Cypress/Dermabond: Dermabond, Care of Stitches Bathing Instructions: DEMETRIO Chew DO Aug 29, 2019 07:25 POS
[2019-08-29] MEDS ORDERED: ONDANSETRON 4 MG/2 ML (SDV) Z0FRAN IVP PRN (07:30)
[2019-08-29] MEDS ORDERED: HYDROcodone/APAP 5 MG/325 MG (LORTAB) TAB PO PRN (07:30)
[2019-08-29] MEDS ORDERED: MEASLES,MUMPS,RUBELLA 1 EA INJ SC SCH (07:30)
[2019-08-29] MEDS ORDERED: TETANUS,DIPTH,PERTUSS P/F (BOOSTRIX) 0.5 ML VIAL IM SCH (07:30)
[2019-08-29] MEDS ORDERED: BISACODYL 10 MG SUPP (DULCOLAX) PR PRN (07:30)
[2019-08-29] MEDS ORDERED: PHENYLEPHRINE 100 MCG/ML 10 ML (ANESTHESIA) SYR ONE (07:33)
[2019-08-29] MEDS ORDERED: BUPIVACAINE 0.5% 30 ML (SENSORCAINE) VIAL ONE (07:53)
[2019-08-29] MEDS ORDERED: OXYTOCIN/NORMAL SALINE 500 ML IV ONE (08:44)
[2019-08-29] MEDS ORDERED: KETOROLAC 30 MG/ML VIAL ONE (08:44)
[2019-08-29] MEDS: CATHETER FLUSH 10 ML SYR IV SCH (08:49)
--- NOTE | 2019-08-29 09:47 | NUR ---
pt transferred to room 307 via bed with this RN and s/o @ side. pt alert, talking. familiarized with room surroundings. call light within reach.
--- NOTE | 2019-08-29 12:54 | OPERATIVE REPORT ---
DATE OF SERVICE: PREOPERATIVE DIAGNOSES: 1. A 29-year-old G2, P1 at 38 weeks gestation. 2. Cholestasis of . 3. Previous section. POSTOPERATIVE DIAGNOSES: 1. A 29-year-old G2, P1 at 38 weeks gestation. 2. Cholestasis of . 3. Previous section. PROCEDURE: Repeat low transverse section. SURGEON: Buck Tracy DO ANGLE SHEAR SET UP OPERATOR: Andree Waldrop, VANESSA was necessary for retraction of vital structures of the procedure. ANESTHESIA: Spinal. ESTIMATED BLOOD LOSS: 500 mL. URINE OUTPUT: 25 mL clear at the end of the procedure. FLUIDS: 2000 mL of lactated Ringer's solution. FINDINGS: A live female infant weighing 6 pounds 14 ounces, Apgars of 8 and 9. Grossly normal appearing uterus, bilateral fallopian tubes and ovaries. INDICATIONS FOR PROCEDURE: This 29-year-old female is a patient who had sought her care in my office throughout her was uncomplicated; however, last week she became itchy in both the palms and the feet. Liver enzymes were negative that day; however, bile salt and bile acids were sent off to the laboratory. Yesterday, I received the values and they were elevated. Due to cholestasis of and increased risk for stillbirth, I recommended delivery immediately the following day at 38 weeks. Risks of the procedure were discussed with the patient in detail. Throughout her , was again reviewed in the preoperative area. After all of her questions were answered, consent was obtained and the patient was taken to the operating room. OPERATIVE REPORT IN DETAIL: Once in the operating room, spinal anesthesia was found to be adequate, placed in the supine position with leftward tilt, prepped and draped in normal sterile fashion. Timeout was performed. Anesthesia was tested. A Pfannenstiel skin incision was then made through the previously existing scar using knife and carried down to underlying fascia using Bovie cautery. Fascial incision was extended laterally using Bovie cautery. Superior aspect of fascial incision was then grasped with Bela clamps, tented up and dissected off the underlying rectus muscles. The inferior aspect of the fascial incision was then grasped with Bela clamps, tented up and dissected off the underlying rectus muscles. The rectus muscle was then dissected down the midline using Rieland scissors, which exposed the peritoneum, which I entered bluntly and extended using blunt traction. I then placed an Jalil ring retractor in peritoneal incision, which offers excellent lateral sidewall retraction in place. I made a low transverse incision to the vesicouterine peritoneum and bluntly dissected off the uterus creating a bladder flap. I then proceeded with my myotomy until membranes were visualized, at which point I extended the uterine incision laterally and superiorly using bandage scissors. was found in occiput posterior presentation. With gentle fundal pressure, the 's head was elevated up to the incision where the nares and oropharynx were bulb suctioned and nuchal cord reduced x1. Anterior and posterior shoulders were delivered. was then brought out of the operative field where the cord was doubly clamped and cut and was handed off to waiting nurses in attendance. Cord blood was collected. Three-vessel cord with intact placenta was delivered spontaneously thereafter. IV Pitocin was initiated to facilitate uterine contraction. Uterine fundus became firmer with bimanual massage. Uterus was exteriorized and cleared of all endometrial clots and debris. I then proceeded with closing the uterine incision using 0 Vicryl suture in running locked fashion. Second layer of imbricating 0 Monocryl was placed. Excellent hemostasis was noted after doing this. I then placed the uterus back within the pelvis and copiously irrigated the pelvis using normal saline. Once again, there was no active bleeding noted from any of my dissection planes. I placed Interceed antiadhesive over my low transverse incision and proceeded with closing the peritoneum using 3-0 Vicryl suture in running fashion. The rectus muscles were reapproximated using 3-0 Vicryl suture in interrupted fashion. The fascia was reapproximated using 0 Vicryl suture in running fashion. Subcutaneous tissue was reapproximated using 4-0 plain in an interrupted subcutaneous stitch and skin reapproximated using 4-0 Monocryl in a running subcuticular. Dermabond was applied to the incision and sterile dressing with adhesive white tape. The patient tolerated the procedure well and sent to recovery in stable condition. Lap and sponge counts were correct at the end of the procedure. Instrument counts correct as well. One gram of Ancef was given preoperatively for infection prophylaxis. Job ID: [id number] DocumentID: [id number] Dictated Date: 08/29/2019 08:12:33 Family Dinner Service Specialist Date: 08/29/2019 12:52:19 Dictated By: DO DAVID MICHELLE
--- NOTE | 2019-08-29 13:10 | NUR ---
Update given infant's status. family members @ side.
[2019-08-29] MEDS: IBUPROFEN 600 MG (MOTRIN) TAB PO SCH ×2 (17:15→20:00)
--- NOTE | 2019-08-29 19:20 | NUR ---
report given to BRYSON Kiser.
[2019-08-29] MEDS: DOCUSATE SODIUM 100 MG (COLACE) CAP PO SCH ×2 (20:23→20:24)
[2019-08-30 00:08] VITALS: BP 103/67
[2019-08-30] MEDS: IBUPROFEN 600 MG (MOTRIN) TAB PO SCH ×5 (00:08→23:52)
[2019-08-30] MEDS ORDERED: ACETAMINOPHEN 500 MG TAB (TYLENOL) ONE (03:46)
[2019-08-30 03:48] VITALS: BP 112/69
[2019-08-30] MEDS: ACETAMINOPHEN 500 MG TAB (TYLENOL) PO PRN ×2 (03:48→18:09)
[2019-08-30] MEDS: CATHETER FLUSH 10 ML SYR IV SCH (03:50)
[2019-08-30 06:52] LABS: BASOPHILS % (AUTO) 0 % (0-10); EOSINOPHILS # (AUTO) 0.1 10^3/uL (0.0-0.3); EOSINOPHILS % (AUTO) 1 % (0-10); HEMATOCRIT 28 % (35-52); HEMOGLOBIN 8.9 G/DL (11.5-16.0); LYMPHOCYTES # (AUTO) 2.1 X 10^3 (1.0-4.0); LYMPHOCYTES % (AUTO) 18 % (12-44); MEAN CORPUSCULAR HEMOGLOBIN 26 PG (25-34); MEAN CORPUSCULAR HGB CONC 31 G/DL (32-36); MEAN CORPUSCULAR VOLUME 82 FL (80-99); MEAN PLATELET VOLUME 11.5 FL (7.4-10.4); MONOCYTES # (AUTO) 0.6 X 10^3 (0.0-1.0); MONOCYTES % (AUTO) 5 % (0-12); NEUTROPHILS % (AUTO) 77 % (42-75); PLATELET COUNT 225 10^3/uL (130-400); RED CELL DISTRIBUTION WIDTH 14.4 % (10.0-14.5); WHITE BLOOD COUNT 11.8 10^3/uL (4.3-11.0)
[2019-08-30] MEDS: DOCUSATE SODIUM 100 MG (COLACE) CAP PO SCH ×2 (08:33→21:31)
[2019-08-30 08:34] VITALS: BP 101/67
--- NOTE | 2019-08-30 08:34 | NUR ---
initial shift assessment completed, see interventions for further. scheduled medications given, see eMar for further.
--- NOTE | 2019-08-30 13:24 | Anesthesia-Regional Post-Op ---
Regional Patient Condition Mental Status: Alert, Oriented x3 Circulation: Same as Pre-Op Headache: Absent Sensation: Full Recovery Motor Block: Absent Post Op Complications Complications None Follow Up Care/Instructions Patient Instructions None needed. Anesthesia/Patient Condition Patient is doing well, no complaints, stable vital signs, no apparent adverse anesthesia problems. No complications reported per nursing. D/C home per [facility] [place] Criteria: RAFFY Manning CRNA Aug 30, 2019 13:24 POS
[2019-08-30 18:30] VITALS: BP 118/74
[2019-08-31 00:04] VITALS: BP 102/59
--- NOTE | 2019-08-31 00:05 | NUR ---
VS and motrin given. sitting up holding baby. no needs
[2019-08-31] MEDS: IBUPROFEN 600 MG (MOTRIN) TAB PO SCH (05:38)
[2019-08-31 05:42] VITALS: BP 114/58
--- NOTE | 2019-08-31 05:44 | NUR ---
Resting quietly. No needs or concerns
--- NOTE | 2019-08-31 08:00 | NUR ---
here. dismissal orders received.
--- NOTE | 2019-08-31 08:05 | Postpartum Progress Note ---
Note Note Day # 2 Subjective: Patient is without complaints. Ambulating, voiding. Tolerating a regular diet without nausea or vomiting. Normal lochia. Pain is well controlled with oral pain medications. Objective: Physical Exam: General - Alert and oriented, no apparent distress Abdomen - Soft, appropriately tender to palpation, non-distended, fundus firm at umbilicus Extremities - no edema, negative Pro's bilaterally Incision: c/d/i Assessment: POD 2 RLTCS Plan: Routine care. Encourage breast feeding. Encourage ambulation. Ferrous sulfate supplementation. Plan for discharge today Vitals - Labs Vital Signs - I&O Vital Signs Date Time Temp Pulse Resp B/P (MAP) Pulse Ox O2 Delivery O2 Flow Rate FiO2 08/31/19 05:42 36.4 71 18 114/58 (76) 99 08/31/19 00:04 36.8 59 18 102/59 (73) 99 Room Air 08/30/19 18:30 36.7 65 18 118/74 (89) 99 Room Air 08/30/19 08:34 36.4 61 18 101/67 (78) 98 Room Air DEMETRIO WARREN DO Aug 31, 2019 08:05 POS
[2019-08-31] MEDS: DOCUSATE SODIUM 100 MG (COLACE) CAP PO SCH (10:01)
[2019-08-31] MEDS: ACETAMINOPHEN 500 MG TAB (TYLENOL) PO PRN (10:01)
[2019-08-31 10:03] VITALS: BP 113/70
--- NOTE | 2019-08-31 10:03 | NUR ---
initial shift assessment completed, see interventions for further. abd incision BASSEM with Dermabond intact @ site. incision edges well approximated with no sx's of infection noted.
--- NOTE | 2019-08-31 10:10 | NUR ---
Dismissal instructions given, verbalizes understanding. reviewed follow up appointments and Rx's. signature page singed, placed on chart.
--- NOTE | 2019-08-31 10:15 | NUR ---
MMR vaccine given. see eMar for further.
--- NOTE | 2019-08-31 11:25 | NUR ---
pt ambulated to private vehicle with staff, infant and @ side. infant secured in rear facing car seat. pt stable with no sx's of distress noted.
== END 2019-08-31 11:25 | disposition home or self-care (01) | DRG 786 ==
LOC: LDRP 06:15
PROVIDERS: ADMIT Obstetrics & Gynecology; ATTEND Obstetrics & Gynecology
PROC: 10D00Z1 Extraction of Products of Conception, Low, Open Approach (ICD-10-PCS; principal; 2019-08-29 07:21)
DX: O26.62 Liver and biliary tract disorders in childbirth (principal); K83.1 Obstruction of bile duct; O34.211 Maternal care for low transverse scar from previous cesarean delivery; Z3A.38 38 weeks gestation of pregnancy; Z37.0 Single live birth
CPT/HCPCS: 36415; 85025; 86850; 86900; 86901; 90707; 94664